=== PATIENT | female | born 1965 | race Caucasian/White ===

== ENCOUNTER 2019-01-20 23:25 | Emergency (ER) | payer OTHER ==
[2019-01-20 23:30] VITALS: BP 143/80; PULSE 91; TEMP 97.4; BMI 32.4
--- NOTE | 2019-01-21 01:04 | PDOC ---
*Physical Exam - Vital Signs Last Vital Signs Temp Pulse Resp BP Pulse Ox 97.4 F L 91 H 20 143/80 98 01/20/19 23:27 01/20/19 23:27 01/20/19 23:27 01/20/19 23:27 01/20/19 23:27 *DC/Admit/Observation/Transfer - Referrals Referrals: Steph Smith MD [Primary Care Provider] - - Patient Instructions - Post Discharge Activity
[2019-01-21] MEDS ORDERED: ERYTHROMYCIN 0.5% OPHTHALMIC OINTMENT 3.5 GM TUBE OS ONE (01:34)
--- NOTE | 2019-01-21 01:35 | PDOC ---
History of Present Illness - General Chief Complaint: Eye Problem Stated Complaint: pain in the left eye Time Seen by Provider: 01/21/19 01:02 History Source: Patient Exam Limitations: No Limitations - History of Present Illness Initial Comments: 01/21/19 01:30 HISTORY OF PRESENT ILLNESS: 53-year-old woman past medical history of glaucoma presents emergency department for left thigh pain for 24 hours. Patient reports she's been taking her glaucoma medication which she recently started in her left eye instructions of her classifier operator Dr. Hernandez. Patient denies any blurry vision, dizziness, headaches, floaters or loss of vision. Patient does report a "Faith" sensation when she blinks. She denies any discharge or drainage and has not had any crusting of her eye. No recent travel or sick contacts. PAST MEDICAL HISTORY: see HPI SURGICAL HISTORY: Denies ALLERGIES: No known drug allergies REVIEW OF SYSTEMS General/Constitutional: Denies fever or chills. Denies weakness, weight change. HEENT: see HPI Cardiovascular: Denies chest pain or shortness of breath. Respiratory: Denies cough, wheezing, or hemoptysis. Gastrointestinal: Denies nausea, vomiting, diarrhea or constipation. Denies rectal bleeding. Genitourinary: Denies dysuria, frequency, or change in urination. Musculoskeletal: Denies joint or muscle swelling or pain. Denies neck or back pain. Skin and breasts: Denies rash or easy bruising. Neurologic: Denies headache, vertigo, loss of consciousness, or loss of sensation. Psychiatric: Denies depression or anxiety. Endocrine: Denies increased thirst. Denies abnormal weight change. Hematologic/Lymphatic: Denies anemia, easy bleeding, or history of blood clots. Allergic/Immunologic: Denies hives or skin allergy. Denies latex allergy. PHYSICAL EXAM General Appearance: Well-appearing, appropriately dressed. No apparent distress , no intoxication. HEENT: EOMI, PERRLA, normal ENT inspection, normal voice, TMs normal, pharynx normal. No conjunctival pallor. No photophobia, scleral icterus. Right eye amblyopia present. Neck: Supple. Trachea midline. No tenderness, rigidity, carotid bruit, stridor , lymphadenopathy, or thyromegaly. Respiratory/Chest: Lungs CTAB. No shortness of breath, chest tenderness, respiratory distress, accessory muscle use. No crackles, rales, rhonchi, stridor , wheezing, dullness Cardiovascular: RRR. S1, S2. No JVD, murmur, bradycardia, tachycardia. Vascular Pulses: Dorsalis-Pedis (R): 2+, Dorsalis-Pedis (L): 2+ Gastrointestinal/Abdominal: Normal bowel sounds. Abdomen soft, non-distended. No tenderness or rebound tenderness. No organomegaly, pulsatile mass, guarding, hernia, hepatomegaly, splenomegaly. Lymphatic: No adenopathy, tenderness. Musculoskeletal/Extremities: Normal inspection. FROM of all extremities, normal capillary refill. Pelvis Stable. No CVA tenderness. No tenderness to extremities, pedal edema, swelling, erythema or deformity. Integumentary: Appropriate color, dry, warm. 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 Fully oriented, alert. Appropriate mood/affect. Motor strength 5/5. No appreciable EOM palsy, facial droop or sensory deficit. Past History - Past Medical History Allergies/Adverse Reactions: Allergies Allergy/AdvReac Type Severity Reaction Status Date / Time No Known Allergies Allergy Verified 08/12/16 11:48 Home Medications: Ambulatory Orders Amlodipine Besylate [Norvasc -] 10 mg PO DAILY 07/28/15 Hydrochlorothiazide [Hctz -] 25 mg PO DAILY 07/28/15 Nitrofurantoin Monohyd/M-Cryst [Macrobid -] 100 mg PO BID #14 capsule 08/12/16 Erythromycin 0.5% Eye Ointment [Erythromycin 0.5% Eye Ointment -] 1 applic OS TID #1 tube 01/21/19 Anemia: No Asthma: Yes Cancer: No Cardiac Disorders: Yes (HTN) CVA: No COPD: No CHF: No DVT: No Dementia: No Diabetes: No Dialysis: No GI Disorders: Yes (history of gastritis; cuurently not on meds) Disorders: No HTN: Yes Hypercholesterolemia: No Kidney Stones: No Liver Disease: No Psychiatric Problems: Yes (Anxiety) Seizures: No Thyroid Disease: No Lung CA: No - Suicide/Smoking/Psychosocial Hx Smoking History: Never smoked Have you smoked in the past 12 months: No Information on smoking cessation initiated: No Hx Alcohol Use: No Drug/Substance Use Hx: No Substance Use Type: None *Physical Exam - Vital Signs Last Vital Signs Temp Pulse Resp BP Pulse Ox 97.4 F L 91 H 20 143/80 98 01/20/19 23:27 01/20/19 23:27 01/20/19 23:27 01/20/19 23:27 01/20/19 23:27 Moderate Sedation - Procedure Monitoring Vital Signs: Procedure Monitoring Vital Signs Temperature 97.4 F L 01/20/19 23:27 Pulse Rate 91 H 01/20/19 23:27 Respiratory Rate 20 01/20/19 23:27 Blood Pressure 143/80 01/20/19 23:27 O2 Sat by Pulse Oximetry (%) 98 01/20/19 23:27 Medical Decision Making - Medical Decision Making 01/21/19 01:30 A/P: 53-year-old woman with history of glaucoma with left thigh pain and 70 sensation in her eyes for the past 24 hours EYE EXAMINATION: Visual acuity: 20/20 in the left eye, 20/20 in the right eye, near, corrected The lid and lashes are normal. Extraocular movements are intact. Right eye amblyopia present. The conjunctiva is erythematous without injection, or discharge. Subconjunctival hemmorhage present at the 5 o'cloxk position of left eye. The corneal surface is normal post tetracaine and fluorescein. There is no corneal abrasion or foreign body. There is no abnormal fluorescein uptake. The pupils are equal, round and reactive to light. The fundus shows normal vessels and normal discs. I'll discharge the patient with erythromycin ointment and instructions to follow -up with her classifier operator tomorrow. 01/21/19 20:21 *DC/Admit/Observation/Transfer Diagnosis at time of Disposition: Conjunctivitis Qualifiers: Conjunctivitis type: acute Acute conjunctivitis type: unspecified Laterality: left Qualified Code(s): H10.32 - Unspecified acute conjunctivitis, left eye - Discharge Dispostion Disposition: HOME Condition at time of disposition: Stable Decision to Admit order: No - Prescriptions Prescriptions: Erythromycin 0.5% Eye Ointment [Erythromycin 0.5% Eye Ointment -] 1 applic OS TID #1 tube - Referrals Referrals: Steph Smith MD [Primary Care Provider] - Precious Hernandez MD [Staff Physician] - - Patient Instructions Additional Instructions: Rest, avoid rubbing eyes Wash hands frequently as this is very contagious Wash hands, use eye drops as directed, wash hands after use Do not share eye ointment with other person to may become infected as this will infect them Erthromycin ointment to affected eye 4 times a day for 5 days Avoid contact with others until redness and discharge is gone from eyes. Followup with ophthalmology or private physician tomorrow. [place], missy frotarte los ojos. Lavarse las mitchel frecuentemente ya que esto es muy contagioso. Lvese las mitchel, use las gotas para los ojos segn las indicaciones, lvese las mitchel despus del uso No comparta el ungento para los ojos con otra persona, ya que podra infectarse ya que esto lo infectar. Ungento de ertromicina en el jil afectado 4 veces al da anabell 5 medrano Evite el contacto con otras personas hasta que el enrojecimiento y la secrecin hayan desaparecido de los ojos. Seguimiento con oftalmologa o mdico privado segn maana. - Post Discharge Activity
[2019-01-21] MEDS ORDERED: ERYTHROMYCIN 0.5% OPHTHALMIC OINTMENT 3.5 GM TUBE ONE (01:41)
== END 2019-01-21 03:03 | disposition home or self-care (01) ==
LOC: JER 23:25
DX: H10.32 Unspecified acute conjunctivitis, left eye (principal); H40.9 Unspecified glaucoma; I10 Essential (primary) hypertension; F41.9 Anxiety disorder, unspecified
CPT/HCPCS: 99281-25

== ENCOUNTER 2019-11-05 16:48 | Emergency (ER) | payer OTHER ==
[2019-11-05 17:16] VITALS: BP 120/62; PULSE 64; TEMP 98.1
--- NOTE | 2019-11-05 18:23 | PDOC ---
History of Present Illness - General Chief Complaint: Back Pain Stated Complaint: BACK PAIN Time Seen by Provider: 11/05/19 17:49 History Source: Patient Exam Limitations: No Limitations Past History - Travel Traveled outside of the country in the last 30 days: No Close contact w/someone who was outside of country & ill: No - Past Medical History Allergies/Adverse Reactions: Allergies Allergy/AdvReac Type Severity Reaction Status Date / Time No Known Allergies Allergy Verified 11/05/19 17:12 Home Medications: Ambulatory Orders Amlodipine Besylate [Norvasc -] 10 mg PO DAILY 07/28/15 Hydrochlorothiazide [Hctz -] 25 mg PO DAILY 07/28/15 Nitrofurantoin Monohyd/M-Cryst [Macrobid -] 100 mg PO BID #14 capsule 08/12/16 Erythromycin 0.5% Eye Ointment [Erythromycin 0.5% Eye Ointment -] 1 applic OS TID #1 tube 01/21/19 Cyclobenzaprine HCl [Flexeril -] 10 mg PO HS #10 tablet 11/05/19 Methylprednisolone [Medrol Dose Martín] 4 mg PO ASDIR #21 tablet 11/05/19 Anemia: No Asthma: Yes Cancer: No Cardiac Disorders: Yes (HTN) CVA: No COPD: No CHF: No DVT: No Dementia: No Diabetes: No Dialysis: No GI Disorders: Yes (history of gastritis; cuurently not on meds) Disorders: No HTN: Yes Hypercholesterolemia: No Kidney Stones: No Liver Disease: No Psychiatric Problems: Yes (Anxiety) Seizures: No Thyroid Disease: No Lung CA: No - Immunization History Immunization Up to Date: Yes - Psycho Social/Smoking Cessation Hx Smoking History: Never smoked Have you smoked in the past 12 months: No Hx Alcohol Use: No Drug/Substance Use Hx: No Substance Use Type: None Review of Systems - Review of Systems Able to Perform ROS?: Yes Comments:: 11/05/19 18:24 CONSTITUTIONAL: Absent: fever, chills, diaphoresis, generalized weakness, malaise, loss of appetite MUSCULOSKELETAL: Present: Low back pain, neck pain, right arm pain absent: myalgia, arthralgia, joint swelling SKIN: Absent: rash, itching, pallor HEMATOLOGIC/IMMUNOLOGIC: Absent: easy bleeding, easy bruising, lymphadenopathy, frequent infections ENDOCRINE: Absent: unexplained weight gain, unexplained weight loss, heat intolerance, cold intolerance NEUROLOGIC: Absent: headache, focal weakness or paresthesias, dizziness, unsteady gait, seizure, mental status changes, bladder or bowel incontinence PSYCHIATRIC: Absent: anxiety, depression, suicidal or homicidal ideation, hallucinations. Is the patient limited Vietnamese proficient: No *Physical Exam - Vital Signs Last Vital Signs Temp Pulse Resp BP Pulse Ox 98.1 F 64 17 120/62 100 11/05/19 17:11 11/05/19 17:11 11/05/19 17:11 11/05/19 17:11 11/05/19 17:11 - Physical Exam 11/05/19 18:33 GENERAL: Well developed, well nourished. Awake and alert. No acute distress. HEENT: Normocephalic, atraumatic. PERRLA, EOMI. No conjunctival pallor. Sclera are non- icteric. Moist mucous membranes. Oropharynx is clear. NECK: Supple. Full ROM. No JVD. Carotid pulses 2+ and symmetric, without bruits. No thyromegaly. No lymphadenopathy. CARDIOVASCULAR: Regular rate and rhythm. No murmurs, rubs, or gallops. Distal pulses are 2+ and symmetric. PULMONARY: No evidence of respiratory distress. Lungs clear to auscultation bilaterally. No wheezing, rales or rhonchi. ABDOMINAL: Soft. Non-tender. Non-distended. No rebound or guarding. No organomegaly. Normoactive bowel sounds. MUSCULOSKELETAL TTP of the L paraspinous muscles, L3-L5, with palpable knot. No midline tenderness. Negative straight leg raise. Tenderness palpation of the paraspinous muscles of the right neck see 4 through C8. Palpable spasm also felt. Strength 5 out of 5 bilaterally in the upper extremities. Normal range of motion at all joints. No bony deformities or tenderness. No CVA tenderness. EXTREMITIES: No cyanosis. No clubbing. No edema. No calf tenderness. SKIN: Warm and dry. Normal capillary refill. No rashes. No jaundice. NEUROLOGICAL: Alert, awake, appropriate. Cranial nerves 2-12 intact. No deficits to light touch and temperature in face, upper extremities and lower extremities. No motor deficits in the in face, upper extremities and lower extremities. Normoreflexic in the upper and lower extremities. Normal speech. Toes are down- going bilaterally. Gait is normal without ataxia. PSYCHIATRIC: Cooperative. Good eye contact. Appropriate mood and affect. Medical Decision Making - Medical Decision Making 11/05/19 19:00 The patient is a 53-year-old female with past medical history of glaucoma, hypertension, who presents to the ER today with neck pain and lower back pain. She states that the pain is been going on for a year however got worse last night. 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 She notes that she has neck pain that radiates down her right arm. She is right -hand dominant. She also notes left-sided low back pain that is worse with movement. Denies fevers, chills, trauma, lightheadedness, numbness and tingling , saddle anesthesia and bladder bowel incontinence. A/P: Low back pain, torticollis -Pt with TTP of the L paraspinous muscles, L3-L5, with palpable knot consistent with muscle spasm. No midline tenderness. Negative straight leg raise. -Tenderness palpation of the paraspinous muscles of the right neck see 4 through C8. Palpable spasm also felt. Strength 5 out of 5 bilaterally in the upper extremities. -No trauma, or fever. No saddle anesthesia or bladder/bowel incontinence. No CVA tenderness. -Pt is neurologically intact on exam with no focal findings. -It is likely due to muscle spasms in both the neck and low back. -Decadron given with relief of symptoms -DC home. Ortho follow up given for if symptoms do not resolve. Patient also has PT on Friday. -I discussed the physical exam findings, ancillary test results and final diagnoses with the patient. I answered all of the patient's questions. The patient was satisfied with the care received and felt comfortable with the discharge plan and treatment plan. The Patient agrees to follow up with the primary care physician/specialist within 24-72 hours. Return precautions were given. Discharge - Discharge Information Problems reviewed: Yes Clinical Impression/Diagnosis: Torticollis Back pain Qualifiers: Back pain location: low back pain Chronicity: acute Back pain laterality: left Sciatica presence: without sciatica Qualified Code(s): M54.5 - Low back pain Condition: Stable Disposition: HOME - Admission No - Additional Discharge Information Prescriptions: Cyclobenzaprine HCl [Flexeril -] 10 mg PO HS #10 tablet Methylprednisolone [Medrol Dose Martín] 4 mg PO ASDIR #21 tablet - Follow up/Referral Referrals: Steph Smith MD [Primary Care Provider] - - Patient Discharge Instructions Patient Printed Discharge Instructions: DI for Low Back Pain Additional Instructions: You were evaluated for your low back pain and your neck pain today. There is most likely muscular spasms that are causing the pain. Please take the prednisone pack starting tomorrow as directed. You may use the muscle relaxers at night to help with the pain. Do not drink alcohol after taking this medication as it may make you drowsy. Please keep your physical therapy appointment for tomorrow. Follow-up with your primary care doctor next week. Return to the ER for worsening pain, numbness and tingling down the extremities , numbness in the groin area, loss of bladder bowel function or if you have any changes in your symptoms. Usted fue evaluado por mar dolor lumbar y mar dolor de guevara hoy. Lo ms probable es que los espasmos musculares causen el dolor. [place] el paquete de prednisona a partir de maana segn las indicaciones. Puede usar los relajantes musculares por la noche para ayudar con el dolor. No tome alcohol despus de shea susan medicamento, ya que puede causar somnolencia. Asista a mar jose de fisioterapia para maana. Leonardo un seguimiento con mar mdico de atencin primaria la prxima semana. Regrese a la pavan de emergencias para empeorar el dolor, entumecimiento y hormigueo en las extremidades, entumecimiento en el wilver de la chad, prdida de la funcin intestinal de la vealeciaga o si tiene algn cambio en raven sntomas. Print Language: EGYPTIAN - Post Discharge Activity
[2019-11-05] MEDS ORDERED: LIDOCAINE 5% TOPICAL PATCH TP ONE (18:36)
[2019-11-05] MEDS ORDERED: DEXAMETHASONE LIQUID 0.5 MG/5 ML PO ONE (18:36)
[2019-11-05] MEDS ORDERED: LIDOCAINE 5% TOPICAL PATCH ONE (18:41)
[2019-11-05] MEDS ORDERED: DEXAMETHASONE SOD PHOSPHATE 10 MG/1 ML VIAL ONE (18:41)
[2019-11-05] MEDS ORDERED: LIDOCAINE PATCH REMOVAL MC SCH (22:00)
== END 2019-11-05 18:56 | disposition home or self-care (01) ==
LOC: JERFT 16:48
DX: M43.6 Torticollis (principal); M54.5 Low back pain; I10 Essential (primary) hypertension; H40.9 Unspecified glaucoma
CPT/HCPCS: 99281-25

== ENCOUNTER 2020-11-28 14:45 | Emergency (ER) | payer OTHER ==
[2020-11-28 15:35] VITALS: BMI 26.9
[2020-11-28] MEDS ORDERED: FAMOTIDINE 20 MG/50 ML IVPB 20 MG/50 ML MG IVPB ONE ×2 (16:19→16:27)
[2020-11-28] MEDS ORDERED: ACETAMINOPHEN 1000 MG/100 ML BAG IVPB ONE (16:20)
[2020-11-28] MEDS ORDERED: ONDANSETRON 4 MG/2 ML VIAL IVPUSH ONE (16:21)
[2020-11-28] MEDS ORDERED: ACETAMINOPHEN INJECTION 100 ML IVPB ONE (16:27)
[2020-11-28 16:37] LABS: BASO % 0.4 % (0-2.0); EOS % 0.1 % (0-4.5); HEMATOCRIT 39.7 % (32.4-45.2); HEMOGLOBIN 14.1 GM/dL (10.7-15.3); LYMPH % 6.6 % (8-40); MCH 30.5 pg (25.7-33.7); MCHC 35.5 g/dl (32.0-36.0); MEAN CELL VOLUME 85.8 fl (80-96); MEAN PLT VOLUME 9.7 fl (7.5-11.1); MONO % 5.6 % (3.8-10.2); NEUT % 87.3 % (42.8-82.8); PLATELET COUNT 275 K/MM3 (134-434); RBC 4.62 M/mm3 (3.60-5.2); RDW 12.4 % (11.6-15.6); WHITE BLOOD COUNT 11.8 K/mm3 (4.0-10.0)
[2020-11-28] MEDS ORDERED: SODIUM CHLORIDE 1,000 ML IV STA (16:43)
[2020-11-28 17:03] LABS: ALBUMIN 4.1 g/dl (3.4-5.0); BLOOD UREA NITROGEN 10.7 mg/dL (7-18)
[2020-11-28 17:06] LABS: CREATININE 0.9 mg/dL (0.55-1.3)
[2020-11-28 17:08] LABS: BILIRUBIN,TOTAL 0.3 mg/dL (0.2-1); TOT PROT 8.3 g/dl (6.4-8.2)
[2020-11-28] MEDS ORDERED: KCL 10 MEQ IVPB 10 MEQ/100 ML INFUS.BAG IVPB ONE ×2 (17:58→18:54)
[2020-11-28] MEDS: KCL 10 MEQ IVPB 10 MEQ/100 ML INFUS.BAG IVPB SCH ×2 (18:04→19:03)
[2020-11-28 18:31] VITALS: BP 112/77; PULSE 92; TEMP 98.8
[2020-11-28 18:32] LABS: EPI CELLS 28 /uL (0-25.1); HYALINE CASTS 5 /uL (0-3.1); PH,URINE 6.5 (5.0-8.0); URINE APPEARANCE CLEAR; URINE BACTERIA 291 /uL (0-1359); URINE BILIRUBIN NEGATIVE (NEGATIVE); URINE COLOR DK YELLOW; URINE GLUCOSE (UA) NEGATIVE (NEGATIVE); URINE KETONE TRACE (NEGATIVE); URINE LEUK ESTERASE TRACE (NEGATIVE); URINE NITRITE NEGATIVE (NEGATIVE); URINE PROTEIN 1+ (NEGATIVE); URINE RBC 8 /uL (0-23.9); URINE UROBILINOGEN 0.2 mg/dL (0.2-1.0); URINE WBC 26 /uL (0-25.8)
[2020-11-28] MEDS ORDERED: MAG HYDROX/AL HYDROX/SIMETH 30 ML UNIT-DOSE CUP PO ONE (18:45)
[2020-11-28] MEDS ORDERED: LIDOCAINE VISCOUS 2% ORAL/TOP 15 ML UNIT-DOSE CUP MM ONE (18:45)
[2020-11-28] MEDS ORDERED: MAG HYDROX/AL HYDROX/SIMETH 30 ML UNIT-DOSE CUP ONE (18:50)
[2020-11-28] MEDS ORDERED: LIDOCAINE VISCOUS 2% ORAL/TOP 15 ML UNIT-DOSE CUP ONE (18:50)
== END 2020-11-28 22:00 | disposition home or self-care (01) ==
LOC: JER 14:45
PROC: 3E0333Z Introduction of Anti-inflammatory into Peripheral Vein, Percutaneous Approach (ICD-10-PCS; principal; 2020-11-28)
PROC: 3E033GC Introduction of Other Therapeutic Substance into Peripheral Vein, Percutaneous Approach (ICD-10-PCS; 2020-11-28)
PROC: 3E033GC Introduction of Other Therapeutic Substance into Peripheral Vein, Percutaneous Approach (ICD-10-PCS; 2020-11-28)
PROC: 3E033GC Introduction of Other Therapeutic Substance into Peripheral Vein, Percutaneous Approach (ICD-10-PCS; 2020-11-28)
PROC: 3E0337Z Introduction of Electrolytic and Water Balance Substance into Peripheral Vein, Percutaneous Approach (ICD-10-PCS; 2020-11-28)
DX: E87.6 Hypokalemia (principal); K29.00 Acute gastritis without bleeding; R10.13 Epigastric pain
CPT/HCPCS: 36415; 76705-TC; 80053; 81003; 83690; 84132; 85025; 87086; 93005; 93010; 99285-25; J0131

== ENCOUNTER 2020-12-15 18:49 | Inpatient (IN) | payer OTHER ==
[2020-12-15 19:03] VITALS: BMI 25.8
[2020-12-15] MEDS ORDERED: ACETAMINOPHEN 1000 MG/100 ML VIAL (NON FORMULARY) IVPB ONE (19:58)
[2020-12-15] MEDS ORDERED: LACTATED RINGERS SOLUTION 1000 ML INFUS.BAG IV ONE (19:58)
[2020-12-15] MEDS ORDERED: ONDANSETRON 4 MG/2 ML VIAL IVPUSH ONE (19:58)
[2020-12-15] MEDS ORDERED: MAG HYDROX/AL HYDROX/SIMETH 30 ML UNIT-DOSE CUP PO ONE (20:19)
[2020-12-15] MEDS ORDERED: FAMOTIDINE 20 MG/50 ML IVPB 20 MG/50 ML MG IVPB ONE ×2 (20:19→20:30)
[2020-12-15] MEDS ORDERED: MAG HYDROX/AL HYDROX/SIMETH 30 ML UNIT-DOSE CUP ONE (20:29)
[2020-12-15] MEDS ORDERED: ACETAMINOPHEN INJECTION 100 ML IVPB ONE (20:29)
[2020-12-15] MEDS ORDERED: ONDANSETRON 4 MG/2 ML VIAL ONE (20:30)
[2020-12-15] MEDS ORDERED: ASPIRIN 325 MG ENTERIC COATED TABLET (FP) PO ONE (20:36)
[2020-12-15] MEDS ORDERED: ASPIRIN 81 MG CHEWABLE TABLETS ONE (20:42)
[2020-12-15 20:51] LABS: INR 1.06 (0.83-1.09)
[2020-12-15 20:54] LABS: ACTIVATED PTT 30.1 SECONDS (25.2-36.5)
[2020-12-15 20:56] LABS: BASO % 0.3 % (0-2.0); EOS % 0.4 % (0-4.5); HEMATOCRIT 42.9 % (32.4-45.2); HEMOGLOBIN 15.1 GM/dL (10.7-15.3); LYMPH % 5.4 % (8-40); MCH 30.2 pg (25.7-33.7); MCHC 35.2 g/dl (32.0-36.0); MEAN PLT VOLUME 10.9 fl (7.5-11.1); NEUT % 87.9 % (42.8-82.8); PLATELET COUNT 336 K/MM3 (134-434); RBC 4.99 M/mm3 (3.60-5.2); RDW 12.3 % (11.6-15.6)
[2020-12-15 21:01] LABS: CHLORIDE 102 mmol/L (98-107); SODIUM 137 mmol/L (136-145)
[2020-12-15 21:03] LABS: CALCIUM 9.6 mg/dL (8.5-10.1)
[2020-12-15 21:04] LABS: ALBUMIN 4.1 g/dl (3.4-5.0); ANION GAP 10 MMOL/L (8-16); BLOOD UREA NITROGEN 12.4 mg/dL (7-18); CO2 24 mmol/L (21-32); GLUCOSE,RANDOM 107 mg/dL (74-106); LIPASE 219 U/L (73-393)
[2020-12-15 21:06] LABS: SGPT/ALT 50 U/L (13-61)
[2020-12-15 21:07] LABS: SGOT/AST 46 U/L (15-37)
[2020-12-15 21:08] LABS: BILIRUBIN,TOTAL 0.7 mg/dL (0.2-1); TOT PROT 8.4 g/dl (6.4-8.2)
[2020-12-15 21:09] LABS: ALK PHOS 90 U/L (45-117)
[2020-12-15 22:28] LABS: CHOLESTEROL 196 mg/dL (50-200); TRIGLYCERIDES 170 mg/dL (0-150)
[2020-12-15 22:29] LABS: LDL CHOLESTEROL (ONLY SJRH) 124 mg/dL (5-100)
[2020-12-15 22:31] LABS: HDL CHOLESTEROL 46 mg/dL (40-60)
[2020-12-15] MEDS ORDERED: POTASSIUM CHLORIDE TABS 20 MEQ TABLET.ER (FP) PO ONE ×2 (23:08→23:49)
[2020-12-15] MEDS ORDERED: METOCLOPRAMIDE HCL INJECTION 10 MG/2 ML VIAL IVPB ONE (23:36)
[2020-12-15] MEDS ORDERED: morphine CARPU-JECT 4 MG/1 ML DISP.SYRIN IVPUSH ONE (23:36)
[2020-12-15] MEDS ORDERED: METOCLOPRAMIDE HCL INJECTION 10 MG/2 ML VIAL ONE (23:48)
[2020-12-15] MEDS ORDERED: morphine SULFATE 4 MG/ML VIAL ONE (23:48)
[2020-12-16] MEDS ORDERED: LACTATED RINGERS SOLUTION 1000 ML INFUS.BAG IV ONE (00:16)
[2020-12-16] MEDS ORDERED: CEFTRIAXONE 1 GM in DEXTROSE 5%-WATER - 50 ML IVPB SCH (04:34)
[2020-12-16] MEDS ORDERED: PIPERACILLIN/TAZOB 3.375 GM 3.375 GM/50 ML BAG IVPB ONE ×2 (04:57→09:39)
[2020-12-16] MEDS: PIPERACILLIN/TAZOB 3.375 GM 3.375 GM in DEXTROSE 5%-WATER - 50 ML IVPB SCH ×2 (05:05→10:05)
[2020-12-16] MEDS: D5-1/2NS+20 MEQ KCL - 20 MEQ/1,000 ML INFUS.BAG IV SCH (05:11)
[2020-12-16] MEDS ORDERED: HEPARIN NA (PORCINE) 5,000 UNITS/ML 1ML VIAL ONE ×2 (05:21→15:51)
[2020-12-16] MEDS: HEPARIN NA (PORCINE) 5,000 UNITS/ML 1ML VIAL SQ SCH ×3 (05:27→22:25)
[2020-12-16 06:34] LABS: BASO % 0.1 % (0-2.0); EOS % 0.3 % (0-4.5); HEMATOCRIT 34.7 % (32.4-45.2); HEMOGLOBIN 12.5 GM/dL (10.7-15.3); LYMPH % 8.2 % (8-40); MCH 31.3 pg (25.7-33.7); MCHC 36.1 g/dl (32.0-36.0); MEAN CELL VOLUME 86.6 fl (80-96); MEAN PLT VOLUME 10.5 fl (7.5-11.1); MONO % 7.8 % (3.8-10.2); NEUT % 83.6 % (42.8-82.8); PLATELET COUNT 284 K/MM3 (134-434); RDW 12.5 % (11.6-15.6)
[2020-12-16 06:41] LABS: INR 1.23 (0.83-1.09)
[2020-12-16 06:44] LABS: ACTIVATED PTT 29.6 SECONDS (25.2-36.5)
[2020-12-16 06:48] LABS: POTASSIUM 3.2 mmol/L (3.5-5.1)
[2020-12-16 06:55] LABS: CALCIUM 8.1 mg/dL (8.5-10.1)
[2020-12-16 06:56] LABS: ALBUMIN 2.8 g/dl (3.4-5.0); BLOOD UREA NITROGEN 12.3 mg/dL (7-18); MAGNESIUM 1.4 mg/dL (1.8-2.4)
[2020-12-16 06:57] LABS: CREATININE 0.8 mg/dL (0.55-1.3)
[2020-12-16 06:58] LABS: BILIRUBIN,TOTAL 0.8 mg/dL (0.2-1)
[2020-12-16 07:04] LABS: TOT PROT 5.7 g/dl (6.4-8.2)
[2020-12-16] MEDS ORDERED: KCL 10 MEQ IVPB 10 MEQ/100 ML INFUS.BAG IVPB ONE ×2 (15:51→18:42)
[2020-12-16] MEDS: KCL 10 MEQ IVPB 10 MEQ/100 ML INFUS.BAG IVPB SCH ×3 (16:00→19:42)
[2020-12-16] MEDS ORDERED: MAGNESIUM SULF 50% (8.12 MEQ/2 ML-1 GM VIAL) IVPB ONE (19:39)
[2020-12-16] MEDS ORDERED: MAGNESIUM SULFATE IN WATER 2 GM/50 ML IVPB IVPB ONE (20:10)
[2020-12-17] MEDS ORDERED: DEXTROSE 5%-WATER - 50 ML IVPB ONE ×2 (01:28→09:41)
[2020-12-17] MEDS ORDERED: cefTRIAXone SODIUM 1 GM VIAL ONE ×2 (01:28→09:41)
[2020-12-17] MEDS: CEFTRIAXONE 1 GM in DEXTROSE 5%-WATER - 50 ML IVPB SCH ×2 (01:32→12:14)
[2020-12-17] MEDS: D5-1/2NS+20 MEQ KCL - 20 MEQ/1,000 ML INFUS.BAG IV SCH ×2 (01:32→05:46)
[2020-12-17] MEDS ORDERED: PIPERACILLIN/TAZOB 3.375 GM 3.375 GM in DEXTROSE 5%-WATER - 50 ML IVPB SCH (02:00)
[2020-12-17] MEDS: MORPHINE SULFATE 2 MG/ML VIAL IVPUSH PRN ×2 (03:03→13:45)
[2020-12-17] MEDS: HEPARIN NA (PORCINE) 5,000 UNITS/ML 1ML VIAL SQ SCH ×2 (05:46→13:32)
[2020-12-17 07:10] LABS: BASO % 0.5 % (0-2.0); HEMATOCRIT 30.5 % (32.4-45.2); LYMPH % 35.5 % (8-40); MCH 31.4 pg (25.7-33.7); MEAN CELL VOLUME 87.1 fl (80-96); MEAN PLT VOLUME 10.5 fl (7.5-11.1); MONO % 8.3 % (3.8-10.2); NEUT % 54.7 % (42.8-82.8); PLATELET COUNT 238 K/MM3 (134-434); RDW 12.7 % (11.6-15.6); WHITE BLOOD COUNT 6.2 K/mm3 (4.0-10.0)
[2020-12-17 07:25] LABS: POTASSIUM 3.3 mmol/L (3.5-5.1)
[2020-12-17 07:29] LABS: CALCIUM 7.9 mg/dL (8.5-10.1)
[2020-12-17 07:30] LABS: ALBUMIN 2.8 g/dl (3.4-5.0); BLOOD UREA NITROGEN 5.4 mg/dL (7-18); MAGNESIUM 1.9 mg/dL (1.8-2.4)
[2020-12-17 07:33] LABS: CREATININE 0.5 mg/dL (0.55-1.3)
[2020-12-17 07:34] LABS: BILIRUBIN,TOTAL 0.4 mg/dL (0.2-1); TOT PROT 5.8 g/dl (6.4-8.2)
[2020-12-17] MEDS: KCL 10 MEQ IVPB 10 MEQ/100 ML INFUS.BAG IVPB SCH ×2 (13:33→14:32)
[2020-12-17] MEDS ORDERED: PHYTONADIONE 10 MG/1 ML AMP IVPB ONE (15:32)
[2020-12-17] MEDS: PANTOPRAZOLE SODIUM 80 MG in SODIUM CHLORIDE 100 ML IVPB SCH (17:49)
[2020-12-18] MEDS: D5-1/2NS+20 MEQ KCL - 20 MEQ/1,000 ML INFUS.BAG IV SCH ×2 (01:23→06:19)
[2020-12-18] MEDS: PANTOPRAZOLE SODIUM 80 MG in SODIUM CHLORIDE 100 ML IVPB SCH ×2 (02:16→12:10)
[2020-12-18 08:30] LABS: BASO % 0.9 % (0-2.0); EOS % 1.5 % (0-4.5); HEMATOCRIT 30.3 % (32.4-45.2); HEMOGLOBIN 10.6 GM/dL (10.7-15.3); LYMPH % 38.6 % (8-40); MCH 30.5 pg (25.7-33.7); MEAN CELL VOLUME 87.1 fl (80-96); MEAN PLT VOLUME 10.2 fl (7.5-11.1); MONO % 11.9 % (3.8-10.2); NEUT % 47.1 % (42.8-82.8); PLATELET COUNT 236 K/MM3 (134-434); RBC 3.48 M/mm3 (3.60-5.2); RDW 13.1 % (11.6-15.6)
[2020-12-18 08:40] LABS: INR 1.09 (0.83-1.09); PROTHROMBIN TIME (PATIENT) 13.1 SEC (9.7-13.0)
[2020-12-18 09:01] LABS: POTASSIUM 3.3 mmol/L (3.5-5.1)
[2020-12-18 09:15] LABS: ALBUMIN 2.9 g/dl (3.4-5.0)
[2020-12-18 09:16] LABS: CALCIUM 8.2 mg/dL (8.5-10.1)
[2020-12-18 09:19] LABS: CREATININE 0.5 mg/dL (0.55-1.3)
[2020-12-18 09:20] LABS: BILIRUBIN,TOTAL 0.3 mg/dL (0.2-1); TOT PROT 5.8 g/dl (6.4-8.2)
[2020-12-18 09:25] LABS: BLOOD UREA NITROGEN 1.4 mg/dL (7-18)
[2020-12-18] MEDS ORDERED: cefTRIAXone SODIUM 1 GM VIAL ONE (09:27)
[2020-12-18] MEDS ORDERED: DEXTROSE 5%-WATER - 50 ML IVPB ONE (09:27)
[2020-12-18] MEDS: CEFTRIAXONE 1 GM in DEXTROSE 5%-WATER - 50 ML IVPB SCH (09:51)
[2020-12-18] MEDS ORDERED: PT OWN MED DRAWER 7, Y5N ONE ×3 (14:14→22:19)
[2020-12-18] MEDS: MORPHINE SULFATE 2 MG/ML VIAL IVPUSH PRN ×2 (14:29→20:38)
[2020-12-18] MEDS: PROCHLORPERAZINE INJECTION 10 MG/2 ML VIAL IM PRN ×2 (15:21→22:22)
[2020-12-19] MEDS: D5-1/2NS+20 MEQ KCL - 20 MEQ/1,000 ML INFUS.BAG IV SCH (05:51)
[2020-12-19 07:11] LABS: BASO % 0.5 % (0-2.0); EOS % 2.8 % (0-4.5); HEMOGLOBIN 11.5 GM/dL (10.7-15.3); MCH 30.7 pg (25.7-33.7); MCHC 34.8 g/dl (32.0-36.0); MEAN CELL VOLUME 88.2 fl (80-96); MEAN PLT VOLUME 10.4 fl (7.5-11.1); MONO % 9.5 % (3.8-10.2); NEUT % 40.2 % (42.8-82.8); PLATELET COUNT 279 K/MM3 (134-434); RBC 3.73 M/mm3 (3.60-5.2); WHITE BLOOD COUNT 5.6 K/mm3 (4.0-10.0)
[2020-12-19] MEDS ORDERED: cefTRIAXone SODIUM 1 GM VIAL ONE (09:46)
[2020-12-19] MEDS ORDERED: DEXTROSE 5%-WATER - 50 ML IVPB ONE (09:47)
[2020-12-19] MEDS: PANTOPRAZOLE 40 MG TABLET PO SCH (09:48)
[2020-12-19] MEDS: CEFTRIAXONE 1 GM in DEXTROSE 5%-WATER - 50 ML IVPB SCH (09:48)
[2020-12-19] MEDS ORDERED: TIMOLOL MALEATE 0.25% GFS OPHTHALMIC SOLN 5 ML BOTTLE OU SCH (12:45)
[2020-12-19] MEDS ORDERED: PT OWN MED DRAWER 7, Y5N ONE ×2 (16:32→22:26)
[2020-12-19] MEDS: PROCHLORPERAZINE INJECTION 10 MG/2 ML VIAL IM PRN ×2 (16:34→22:29)
[2020-12-19 17:08] LABS: GLIADIN ANTIBODY IGA 11 units (0-19); GLIADIN ANTIBODY IGG 2 units (0-19); TRANSGLUTAMINASE IGG < 2 U/mL (0-5)
[2020-12-19] MEDS ORDERED: LATANOPROST 0.005% OPHTH SOLN 2.5ML BOTTLE OU SCH (22:00)
[2020-12-20] MEDS ORDERED: ACETAMINOPHEN 1000 MG/100 ML VIAL (NON FORMULARY) IVPB ONE (02:55)
[2020-12-20] MEDS: D5-1/2NS+20 MEQ KCL - 20 MEQ/1,000 ML INFUS.BAG IV SCH (04:43)
[2020-12-20 07:41] LABS: BASO % 0.9 % (0-2.0); EOS % 2.4 % (0-4.5); HEMOGLOBIN 11.1 GM/dL (10.7-15.3); LYMPH % 37.4 % (8-40); MCH 31.2 pg (25.7-33.7); MCHC 35.7 g/dl (32.0-36.0); MEAN CELL VOLUME 87.4 fl (80-96); MEAN PLT VOLUME 10.2 fl (7.5-11.1); MONO % 10.7 % (3.8-10.2); NEUT % 48.6 % (42.8-82.8); PLATELET COUNT 266 K/MM3 (134-434); RBC 3.55 M/mm3 (3.60-5.2); RDW 12.9 % (11.6-15.6); WHITE BLOOD COUNT 6.2 K/mm3 (4.0-10.0)
[2020-12-20 08:26] LABS: POTASSIUM 3.9 mmol/L (3.5-5.1)
[2020-12-20 08:31] LABS: CALCIUM 8.1 mg/dL (8.5-10.1)
[2020-12-20 08:33] LABS: CREATININE 0.6 mg/dL (0.55-1.3)
[2020-12-20 09:22] LABS: BLOOD UREA NITROGEN 2.5 mg/dL (7-18)
[2020-12-20] MEDS ORDERED: cefTRIAXone SODIUM 1 GM VIAL ONE (09:34)
[2020-12-20] MEDS ORDERED: DEXTROSE 5%-WATER - 50 ML IVPB ONE (09:34)
[2020-12-20] MEDS: PANTOPRAZOLE 40 MG TABLET PO SCH (09:37)
[2020-12-20] MEDS: CEFTRIAXONE 1 GM in DEXTROSE 5%-WATER - 50 ML IVPB SCH (09:38)
[2020-12-20] MEDS ORDERED: TIMOLOL 0.25% OPHTHALMIC SOL 5 ML BOTTLE OU SCH (10:00)
[2020-12-20 14:27] VITALS: BP 137/81; PULSE 81; TEMP 97.8
[2020-12-20 16:08] LABS: ATYPICAL pANCA <1:20 titer (Neg:<1:20); C-ANCA <1:20 titer (Neg:<1:20)
== END 2020-12-20 15:00 | disposition home or self-care (01) | DRG 137 ==
LOC: JER 18:49 → JERBED 12-16 02:36 → J4S 12-17 01:19
PROVIDERS: ADMIT Hospitalist; ATTEND Internal Medicine
DX: U07.1 COVID-19 (principal); A08.39 Other viral enteritis; I47.2 Ventricular tachycardia; J45.909 Unspecified asthma, uncomplicated; I10 Essential (primary) hypertension; E78.5 Hyperlipidemia, unspecified; K29.60 Other gastritis without bleeding; E87.6 Hypokalemia; R94.31 Abnormal electrocardiogram [ECG] [EKG]; H40.9 Unspecified glaucoma; D64.9 Anemia, unspecified
CPT/HCPCS: 36415; 71045-TC-FY; 74177-TC; 80048; 80053; 80061; 82728; 82784; 83516; 83520; 83540; 83550; 83605; 83690; 83721; 83735; 84100; 84484; 85025; 85610; 85730; 86140; 86256; 86671; 86769; 87045; 87046; 87077; 87177; 87205; 87209; 87798; 93005; 93010; 93306-TC; 99285-25; C9803; J0131; J1644; Q9967; U0003

== ENCOUNTER 2024-06-07 16:25 | Inpatient (IN) | payer OTHER ==
[2024-06-07] MEDS ORDERED: TRIMETHOBENZAMIDE HCL 200MG/2ML INJ IM ONE (18:02)
[2024-06-07] MEDS ORDERED: ACETAMINOPHEN INJECTION 100 ML IVPB ONE (18:02)
[2024-06-07] MEDS ORDERED: MAG HYDROX/AL HYDROX/SIMETH 30 ML UNIT-DOSE CUP ONE (18:03)
[2024-06-07] MEDS ORDERED: FAMOTIDINE 20 MG/50 ML IVPB 20 MG/50 ML MG IVPB ONE (18:03)
[2024-06-07] MEDS: TRIMETHOBENZAMIDE HCL 200MG/2ML INJ IM ONE (18:13)
[2024-06-07] MEDS: ACETAMINOPHEN 1000 MG/100 ML BAG IVPB ONE (18:13)
[2024-06-07 18:14] LABS: BASO % 0.2 % (0-2.0); EOS % 1.2 % (0-4.5); HEMATOCRIT 39.9 % (32.4-45.2); HEMOGLOBIN 13.8 GM/dL (10.7-15.3); LYMPH % 5.5 % (8-40); MCH 29.9 pg (25.7-33.7); MCHC 34.6 g/dl (32.0-36.0); MEAN CELL VOLUME 86.4 fl (80-96); MEAN PLT VOLUME 9.3 fl (7.5-11.1); MONO % 2.7 % (3.8-10.2); NEUT % 90.4 % (42.8-82.8); PLATELET COUNT 282 10^3/uL (134-434); RBC 4.62 M/mm3 (3.60-5.2); RDW 12.4 % (11.6-15.6); WHITE BLOOD COUNT 14.4 K/mm3 (4.0-10.0)
[2024-06-07] MEDS: MAG HYDROX/AL HYDROX/SIMETH 30 ML UNIT-DOSE CUP PO ONE (18:14)
[2024-06-07] MEDS: SODIUM CHLORIDE 0.9% 500 ML INFUS.BAG IV ONE (18:14)
[2024-06-07 18:27] LABS: CHLORIDE 106 mmol/L (98-107); SODIUM 140 mmol/L (136-145)
[2024-06-07 18:29] LABS: MAGNESIUM 2.1 mg/dL (1.8-2.4)
[2024-06-07 18:30] LABS: BLOOD UREA NITROGEN 16.6 mg/dL (7-18); CALCIUM 9.6 mg/dL (8.5-10.1)
[2024-06-07 18:31] LABS: ALBUMIN 4.1 g/dl (3.4-5.0); CO2 27 mmol/L (21-32); GLUCOSE,RANDOM 96 mg/dL (74-106)
[2024-06-07 18:32] LABS: INR 0.99 (0.83-1.09); PROTHROMBIN TIME (PATIENT) 11.2 SEC (9.7-13.0)
[2024-06-07 18:33] LABS: CREATININE 0.8 mg/dL (0.55-1.3); SGPT/ALT 24 U/L (13-61)
[2024-06-07 18:34] LABS: SGOT/AST 17 U/L (15-37)
[2024-06-07 18:35] LABS: ANION GAP 8 mmol/L (4-13); BILIRUBIN,TOTAL 0.8 mg/dL (0.2-1); POTASSIUM 2.7 mmol/L (3.5-5.1); TOT PROT 7.9 g/dl (6.4-8.2)
[2024-06-07 18:36] LABS: ALK PHOS 126 U/L (45-117)
[2024-06-07] MEDS: FAMOTIDINE 20 MG/50 ML IVPB 20 MG/50 ML MG IVPB ONE (18:44)
[2024-06-07] MEDS: KCL 10 MEQ IVPB 10 MEQ/100 ML INFUS.BAG IVPB SCH (19:01)
[2024-06-07] MEDS ORDERED: POTASSIUM CHLORIDE ORAL LIQUID 20 MEQ/15 ML ONE (20:18)
[2024-06-07] MEDS ORDERED: MAGNESIUM SULFATE IN WATER 2 GM/50 ML IVPB IVPB ONE (20:19)
[2024-06-07] MEDS: POTASSIUM CHLORIDE ORAL LIQUID 20 MEQ/15 ML PO ONE (20:29)
[2024-06-07] MEDS: MAGNESIUM SULFATE IN WATER 2 GM/50 ML IVPB IVPB ONE (20:29)
[2024-06-07] MEDS ORDERED: KCL 10 MEQ IVPB 10 MEQ/100 ML INFUS.BAG IVPB ONE ×2 (22:11→23:38)
[2024-06-07] MEDS ORDERED: morphine SULFATE 4 MG/ML VIAL ONE (22:35)
[2024-06-07] MEDS: morphine CARPU-JECT 4 MG/1 ML DISP.SYRIN IVPUSH ONE (22:47)
[2024-06-07] MEDS ORDERED: CEFTRIAXONE 1 GM/50 ML BAG ONE (23:06)
[2024-06-07] MEDS: CEFTRIAXONE 1,000 MG in DEXTROSE 5%-WATER - 50 ML IVPB ONE (23:17)
[2024-06-08] MEDS: DEXTROSE 5%-0.45% SALINE 1,000 ML IV SCH (01:24)
[2024-06-08] MEDS: TRIMETHOBENZAMIDE HCL 200MG/2ML INJ IM PRN (03:18)
[2024-06-08 04:25] VITALS: BMI 28.3
[2024-06-08] MEDS: CEFTRIAXONE 1 GM in DEXTROSE 5%-WATER - 50 ML IVPB SCH (09:07)
[2024-06-08] MEDS: ENOXAPARIN NA (PORCINE) 40 MG/0.4 ML DISP.SYRIN SQ SCH (09:07)
[2024-06-08 09:48] LABS: BASO % 0.1 % (0-2.0); EOS % 0.1 % (0-4.5); HEMATOCRIT 32.5 % (32.4-45.2); HEMOGLOBIN 11.5 GM/dL (10.7-15.3); LYMPH % 9.1 % (8-40); MCH 30.7 pg (25.7-33.7); MCHC 35.5 g/dl (32.0-36.0); MEAN CELL VOLUME 86.5 fl (80-96); MEAN PLT VOLUME 9.7 fl (7.5-11.1); MONO % 6.8 % (3.8-10.2); NEUT % 83.9 % (42.8-82.8); PLATELET COUNT 247 10^3/uL (134-434); RBC 3.75 M/mm3 (3.60-5.2); RDW 13.4 % (11.6-15.6); WHITE BLOOD COUNT 10.4 K/mm3 (4.0-10.0)
[2024-06-08 09:58] LABS: CHLORIDE 110 mmol/L (98-107); SODIUM 139 mmol/L (136-145)
[2024-06-08 10:00] LABS: POTASSIUM 2.9 mmol/L (3.5-5.1)
[2024-06-08 10:01] LABS: ANION GAP 7 mmol/L (4-13); BLOOD UREA NITROGEN 6.3 mg/dL (7-18); CO2 22 mmol/L (21-32); GLUCOSE,RANDOM 125 mg/dL (74-106)
[2024-06-08 10:05] LABS: CREATININE 0.7 mg/dL (0.55-1.3)
[2024-06-08 10:11] LABS: CALCIUM 7.9 mg/dL (8.5-10.1)
[2024-06-08] MEDS: KCL 10 MEQ IVPB 10 MEQ/100 ML INFUS.BAG IVPB SCH (11:41)
[2024-06-09] MEDS: D5-1/2NS+20 MEQ KCL - 20 MEQ/1,000 ML INFUS.BAG IV SCH (01:26)
[2024-06-09 05:59] VITALS: RESP 18
[2024-06-09 09:28] LABS: CALCIUM 8.6 mg/dL (8.5-10.1)
[2024-06-09 09:29] LABS: BLOOD UREA NITROGEN 3.2 mg/dL (7-18)
[2024-06-09 09:31] LABS: CREATININE 0.7 mg/dL (0.55-1.3)
[2024-06-09] MEDS: POTASSIUM CHLORIDE ORAL LIQUID 20 MEQ/15 ML PO ONE (13:31)
[2024-06-10 11:24] VITALS: TEMP 97.9
[2024-06-10 15:45] VITALS: BP 122/81; PULSE 76
== END 2024-06-10 17:50 | disposition home or self-care (01) | DRG 249 ==
LOC: JER 16:25 → JERBED 23:44 → J8W 06-08 02:36
PROVIDERS: ADMIT Internal Medicine; ATTEND Internal Medicine
DX: K52.9 Noninfective gastroenteritis and colitis, unspecified (principal); I10 Essential (primary) hypertension; E78.5 Hyperlipidemia, unspecified; J45.909 Unspecified asthma, uncomplicated; K92.1 Melena; R11.2 Nausea with vomiting, unspecified; D72.829 Elevated white blood cell count, unspecified; K76.0 Fatty (change of) liver, not elsewhere classified; F41.9 Anxiety disorder, unspecified; H40.9 Unspecified glaucoma
CPT/HCPCS: 0241U-QW; 36415; 71045-TC-FY; 74177-TC; 80048; 80053; 80061; 83605; 83690; 83735; 84443; 84484; 85025; 85610; 85730; 86850; 86900; 86901; 87040; 87045; 87046; 87086; 87205; 87207; 87209; 87324; 87449; 93005; 93010; 99285-25; J0131; Q9967

== ENCOUNTER 2024-06-14 04:29 | Emergency (ER) | payer OTHER ==
[2024-06-14 04:35] VITALS: BMI 28.1
[2024-06-14] MEDS ORDERED: MAG HYDROX/AL HYDROX/SIMETH 30 ML UNIT-DOSE CUP ONE (05:10)
[2024-06-14] MEDS ORDERED: ACETAMINOPHEN INJECTION 100 ML IVPB ONE (05:10)
[2024-06-14] MEDS ORDERED: TRIMETHOBENZAMIDE HCL 200MG/2ML INJ IM ONE ×2 (05:10→05:12)
[2024-06-14] MEDS ORDERED: FAMOTIDINE 20 MG/50 ML IVPB 20 MG/50 ML MG IVPB ONE (05:10)
[2024-06-14] MEDS: FAMOTIDINE 20 MG/50 ML IVPB 20 MG/50 ML MG IVPB ONE (05:33)
[2024-06-14] MEDS: LACTATED RINGERS SOLUTION 1000 ML INFUS.BAG IV ONE (05:33)
[2024-06-14] MEDS: SODIUM CHLORIDE 0.9% 500 ML INFUS.BAG IV ONE (05:33)
[2024-06-14] MEDS: TRIMETHOBENZAMIDE HCL 200MG/2ML INJ IM ONE (05:33)
[2024-06-14] MEDS: ACETAMINOPHEN 1000 MG/100 ML BAG IVPB ONE (05:33)
[2024-06-14] MEDS: MAG HYDROX/AL HYDROX/SIMETH 30 ML UNIT-DOSE CUP PO ONE (05:33)
[2024-06-14 06:06] LABS: POTASSIUM 3.5 mmol/L (3.5-5.1)
[2024-06-14 06:08] LABS: CALCIUM 9.4 mg/dL (8.5-10.1)
[2024-06-14 06:09] LABS: BLOOD UREA NITROGEN 12.8 mg/dL (7-18); MAGNESIUM 1.8 mg/dL (1.8-2.4)
[2024-06-14 06:12] LABS: CREATININE 0.8 mg/dL (0.55-1.3); PHOSPHOROUS 3.6 mg/dL (2.5-4.9)
[2024-06-14 06:13] LABS: TOT PROT 8.3 g/dl (6.4-8.2)
[2024-06-14 06:14] LABS: BILIRUBIN,TOTAL 0.8 mg/dL (0.2-1)
[2024-06-14] MEDS: MAG HYDROX/ALH/SMC/DPHA/LIDO 240 ML MOUTHWASH MM ONE (06:43)
[2024-06-14 07:44] LABS: HEMOGLOBIN 14.6 GM/dL (10.7-15.3); MCH 30.4 pg (25.7-33.7); MCHC 34.8 g/dl (32.0-36.0); MEAN CELL VOLUME 87.3 fl (80-96); PLATELET COUNT 383 10^3/uL (134-434); RDW 13.5 % (11.6-15.6)
[2024-06-14] MEDS ORDERED: MORPHINE SULFATE 2 MG/ML SYRINGE ONE (08:02)
[2024-06-14] MEDS: morphine SULFATE 4 MG/ML VIAL IVPUSH ONE (08:05)
[2024-06-14] MEDS ORDERED: ONDANSETRON 4 MG/2 ML VIAL ONE (08:08)
[2024-06-14] MEDS: ONDANSETRON 4 MG/2 ML VIAL IVPUSH ONE (08:08)
[2024-06-14] MEDS ORDERED: PANTOPRAZOLE SODIUM 40 MG VIAL ONE (08:16)
[2024-06-14] MEDS: PANTOPRAZOLE SODIUM 40 MG VIAL IVPUSH ONE (08:29)
[2024-06-14 09:05] LABS: ANISOCYTOSIS 2+; MACROCYTOSIS 0
[2024-06-14 09:11] LABS: PLATELET ESTIMATE ADEQUATE
[2024-06-14 10:12] LABS: PH,URINE 5.5 (5.0-8.0); URINE APPEARANCE CLEAR; URINE BILIRUBIN NEGATIVE (NEGATIVE); URINE COLOR YELLOW; URINE GLUCOSE (UA) NEGATIVE (NEGATIVE); URINE KETONE NEGATIVE (NEGATIVE); URINE LEUK ESTERASE NEGATIVE (NEGATIVE); URINE NITRITE NEGATIVE (NEGATIVE); URINE PROTEIN NEGATIVE (NEGATIVE); URINE UROBILINOGEN 0.2 mg/dL (0.2-1.0)
[2024-06-14 12:47] VITALS: BP 105/65; PULSE 76; RESP 17; TEMP 98.2
== END 2024-06-14 13:52 | disposition home or self-care (01) ==
LOC: JER 04:29
PROC: 3E033GC Introduction of Other Therapeutic Substance into Peripheral Vein, Percutaneous Approach (ICD-10-PCS; principal; 2024-06-14)
PROC: 3E033GC Introduction of Other Therapeutic Substance into Peripheral Vein, Percutaneous Approach (ICD-10-PCS; 2024-06-14)
PROC: 3E033GC Introduction of Other Therapeutic Substance into Peripheral Vein, Percutaneous Approach (ICD-10-PCS; 2024-06-14)
PROC: 3E033NZ Introduction of Analgesics, Hypnotics, Sedatives into Peripheral Vein, Percutaneous Approach (ICD-10-PCS; 2024-06-14)
PROC: 3E033NZ Introduction of Analgesics, Hypnotics, Sedatives into Peripheral Vein, Percutaneous Approach (ICD-10-PCS; 2024-06-14)
PROC: 3E023GC Introduction of Other Therapeutic Substance into Muscle, Percutaneous Approach (ICD-10-PCS; 2024-06-14)
DX: R10.13 Epigastric pain (principal); R11.2 Nausea with vomiting, unspecified; R19.7 Diarrhea, unspecified; R10.12 Left upper quadrant pain
CPT/HCPCS: 36415; 71045-TC-FY; 76705-TC; 80053; 81003; 83690; 83735; 84100; 84484; 85025; 87086; 87186; 93005; 93010; 99285-25; J0131

== ENCOUNTER 2024-09-11 07:20 | Emergency (ER) | payer OTHER ==
[2024-09-11 07:36] VITALS: BP 120/76; PULSE 76; RESP 16; TEMP 98.4; BMI 27.4
[2024-09-11] MEDS: ALBUTEROL SO4 2.5/IPRATROPIUM 0.5 INH SOL 3 ML VIAL.NEB. NEB SCH (08:49)
[2024-09-11] MEDS ORDERED: DEXAMETHASONE SOD PHOSPHATE 10 MG/1 ML VIAL ONE (09:24)
[2024-09-11] MEDS: DEXAMETHASONE 4 MG TABLET (FP) PO ONE (09:40)
== END 2024-09-11 10:03 | disposition home or self-care (01) ==
LOC: JER 07:20
PROC: 3E0F7GC Introduction of Other Therapeutic Substance into Respiratory Tract, Via Natural or Artificial Opening (ICD-10-PCS; principal; 2024-09-11)
DX: J45.901 Unspecified asthma with (acute) exacerbation (principal); R07.89 Other chest pain
CPT/HCPCS: 99283-25